=== PATIENT | female | born 1960 | race African-American/Black ===

== ENCOUNTER 2017-02-15 09:54 | Emergency (ER) | payer OTHER ==
[~2017-02-15] VITALS: Ht 167.6 cm; Wt 63.5 kg
[~2017-02-15 09:54] MED LIST: ALBUTEROL SULF8.5 GM INH; BACTRIM DS TAB1 EACH PO; CEFDINIR300 MG PO; CLARITIN10 M2 PO; CLEOCIN HCL150 MG PO; CLINDAMYCIN HC150 MG PO; COLACE100 MG PO; IBUPROFEN 400400 M2 PO; IBUPROFEN 800800 M1 PO; LEVAQUIN 500 M500 MG PO; NASAL SPRAY; NASONEX17 GM NASAL; NOHOMEMEDICATIONS; NORCO 5-325 TA1 EACH PO; PREDNISONE50 MG PO; TECFIDERA240 MG PO; TOVIAZ4 M1 PO; TRAMADOL 50 MG50 MG PO; TYLENOL325 MG PO; VALIUM2 MG PO; VITAMIN D-32000 UNI1 PO; ZOFRAN ODT4 MG PO
[2017-02-15 10:35] LABS: CALCIUM 9.4 mg/dL (8.5-10.1); CREATININE 1.1 mg/dL (0.6-1.0); POTASSIUM 4.2 mmol/L (3.5-5.1)
[2017-02-15 11:49] LABS: URINE BILIRUBIN NEGATIVE (Negative); URINE BLOOD TRACE (Negative); URINE COLOR YELLOW; URINE GLUCOSE-RANDOM* NEGATIVE (Negative); URINE KETONES 1+ (Negative); URINE LEUKOCYTES-REFLEX 3+ (Negative); URINE PROTEIN (DIPSTICK) 1+ (Negative); URINE SPECIFIC GRAVITY 1.015 (1.003-1.035); URINE UROBILINOGEN 0.2 E.U./dl (0.2-1.0)
[2017-02-15 11:54] LABS: CASTS None Seen /LPF (None Seen); CRYSTALS None Seen /LPF (None Seen); SQUAMOUS 4-10 Moderate /LPF (0-3); URINE WBC-REFLEX >25 Many /HPF (0-5)
[2017-02-15 11:55] LABS: URINE RBC 0-2 Rare /HPF (0-2)
[2017-02-15 13:21] LABS: HEMATOCRIT 34.1 % (37.0-47.0); HEMOGLOBIN 11.8 gm/dL (12.0-15.0); MCHC 34.5 g/dL (28.0-37.0); PLATELET COUNT 206 thou/uL (150-400); RBC 4.06 mil/uL (4.20-5.00); RDW 14.5 % (10.5-14.5); WBC 8.6 thou/uL (4.0-11.0)
[2017-02-15 13:22] LABS: MANUAL DIFF YES
[2017-02-15 13:51] LABS: ABSOLUTE NEUTROPHILS 7.1 thou/uL (1.4-8.2); ANISOCYTOSIS SLIGHT; TOTAL CELL COUNT 100
[2017-02-15] MEDS ORDERED: KEFLEX500 MG PO (13:51)
== END 2017-02-15 14:54 | disposition home or self-care (01) ==
LOC: ER 09:54
PROVIDERS: Emergency Medicine
DX: G35 Multiple sclerosis (principal); N39.0 Urinary tract infection, site not specified; Z88.0 Allergy status to penicillin

== ENCOUNTER 2017-03-18 22:44 | Emergency (ER) | payer OTHER | END 2017-03-19 03:14 | disposition home or self-care (01) | LOC: ER 22:44 | DX: M62.81 Muscle weakness (generalized) (principal); E83.42 Hypomagnesemia; G35 Multiple sclerosis; N39.0 Urinary tract infection, site not specified; Z88.1 Allergy status to other antibiotic agents ==

== ENCOUNTER 2017-09-02 05:41 | Observation (INO) | payer OTHER ==
[~2017-09-02] VITALS: Ht 167.6 cm; Wt 82.6 kg
--- NOTE | ~2017-09-02 | D ---
[facility] [place] [address] DISCHARGE SUMMARY Name: BRISEIDA MENDOZA Room #: 216-P PRASANNA Rahman#: [id number] Admission: 09/02/17 Attend Phys: Antonia Salas Discharge: 09/04/17 Date of : 56 Report #: [id number] THIS REPORT FOR: //name// CC: Antonia Salas ROBERT STRATTON DATE OF SERVICE: 09/04/2017 HISTORY OF PRESENT ILLNESS: The patient is a 57-year-old female with history of MS, who came to the hospital with severe right-sided facial pain, and facial weakness. Please refer to admission H and P for details. HOSPITALIZATION COURSE: The patient was hospitalized for above symptoms. The patient has history of MS, diagnosed in 2012. She was seen by neurologist. MRI of the brain showed no evidence of acute stroke. The patient was treated for trigeminal neuralgia with two doses of the steroids, Solu-Medrol 1000 mg. The patient's symptoms have entirely resolved. Due to weakness and debility from multiple sclerosis, the patient was seen and evaluated by rehab team. Acute rehab was recommended. The patient is currently stable to be transferred to the acute rehab. DISCHARGE DIAGNOSES: 1. Trigeminal neuralgia, resolved after steroid injections. No evidence of stroke. 2. History of multiple sclerosis, diagnosed in 2012, weakness and debility. DISCHARGE MEDICATIONS: Please refer to medication reconciliation list. FOLLOWUP PLAN: 1. Follow up with the primary care physician in 1-2 weeks. 2. Follow up with the neurologist as advised. <ELECTRONICALLY SIGNED> By: Mariana Romero MD 09/06/17 0709 [id number] 1510 Mariana Romero MD /nt
--- NOTE | ~2017-09-02 | HC ---
[facility] [place] [address] CONSULTATION Name: BRISEIDA MENDOZA Room #: 216-P [facility] Thais Rahman#: [id number] Admission: 09/02/17 Attend Phys: Antonia Salas Discharge: 09/04/17 Date of : 56 Report #: [id number] THIS REPORT FOR: //name// CC: Antonia Salas ROBERT STRATTON DATE OF SERVICE: 09/04/2017 HISTORY OF PRESENT ILLNESS: The patient is a 57-year-old -Albanian female with history of multiple sclerosis, diabetes mellitus, who had problems with facial weakness on the right, facial pain and worsening problems with ambulation. She was admitted to [facility]. Her MRI was consistent with MS without any active lesions per se. No evidence of any cerebrovascular accident. Question of trigeminal neuralgia. Neurology has been involved and she has been placed on IV Solu-Medrol. Her facial pain is improved, but there was concern regarding her decreased functional mobility and gait problems. We are seeing her in rehabilitation medicine consultation. PAST MEDICAL HISTORY: Include the multiple sclerosis. History of pyelonephritis, UTI. Upon checking her prior past medical history I do not actually see a diagnosis of diabetes. ALLERGIES: PENICILLIN. HABITS: No history of tobacco or alcohol abuse. SOCIAL HISTORY: Lives in a condominium with her , two steps in, 12 inside. She does not utilize any gait aids inside the condominium, but does use a cane outside of the house. REVIEW OF SYSTEMS: Offer any current complaints of chest pain, shortness of breath or abdominal discomfort. Her biggest concern is her decreased functional mobility. Notes that the facial pain is improved as noted above. PHYSICAL EXAMINATION: GENERAL: A pleasant 57-year-old -Albanian female in no obvious distress. The patient is alert. VITAL SIGNS: Last recorded temperature 98.2, pulse 72, respirations 16, blood pressure 131/75. HEENT: Appeared to be benign. EOMs appeared to be intact. EXTREMITIES: There was a hint of some nystagmus laterally as well as horizontally. She is able to verbalize reasonably well. Functional range of motion of both upper extremities. Strength is grade 4-/5. DTRs are trace to 1. She does reasonably well with bilateral upper extremity rapid alternating movements, but is quite slow and they are somewhat labored. Her lower extremities, no focal calf swelling. There is no clonus. She was very slow [facility] [address] [place] [address] CONSULTATION Name: BRISEIDA MENDOZA Room #: 216-P [facility] Thais Rahman#: [id number] Admission: 09/02/17 Attend Phys: Antonia Salas Discharge: 09/04/17 Date of : 56 Report #: [id number] with attempted [id number]. She was last contact guard assistance with [id number]-vs-[id number]. Gait was 45 feet min assist with the quad cane. ASSESSMENT: A 57-year-old -Albanian female with the following problem list: 1. Multiple sclerosis exacerbation, was placed on IV Solu-Medrol. 2. Gait instability with decreased functional ambulation. 3. Right facial pain, question trigeminal neuralgia, which has improved. 4. Renal insufficiency. PLAN: Therapies are to further evaluate. She certainly may be a candidate for a short acute in-hospital inpatient rehabilitation stay with her overall functional decline from her MS exacerbation. We will assess further how she does in therapies. Insurance precertification will need to be checked pending her needs. We will be glad to follow along with you regarding her rehab therapy needs. <ELECTRONICALLY SIGNED> By: Darrion De La Garza MD 09/05/17 1554 1130 2207 Darrion De La Garza MD /[facility]
--- NOTE | ~2017-09-02 | EKG ---
[address] [place] [employer] [place] [address] ELECTROCARDIOGRAM REPORT Name: BRISEIDA MENDOZA Room #: 216-P ADM IN M.R.#: [id number] Admission: 09/02/17 Attend Phys: Antonia Salas Discharge: Date of : 56 Report #: [id number] THIS REPORT FOR: //name// [facility] ED Test Date: 2017-09-02 Test Time: 06:41:51 Pat Name: BRISEIDA MENDOZA Department: Room: 216 Gender: F Coil Connector: ARLETH : 1960 Requested By: Rashad Villalba Order Number: [id number] MD: Arley Leiva Measurements Intervals [place] Rate: 81 P: 31 [place]: 169 QRS: 12 QRSD: 92 T: 52 QT: 382 QTc: 444 Interpretive Statements Sinus rhythm No significant abnormality Compared to ECG 03/18/2017 23:11:21 Sinus tachycardia no longer present T-wave abnormality no longer present Electronically Signed On 09-04-2017 7:25:51 MEDICAL DERMATOLOGIST by Arley Leiva [email or web address] <ELECTRONICALLY SIGNED> By: Arley Leiva MD, [facility] 09/04/17 07 0 0 Arley Leiva MD, [facility] /EPI
[~2017-09-02 05:41] MED LIST changes: +KEFLEX500 MG PO; +MAG-OXIDE400 MG PO; +ZPAK PO
[2017-09-02 05:51] VITALS: BP 138/54
[2017-09-02] MEDS ORDERED: COLACE 100 MG100 MG PO (06:03)
[2017-09-02] MEDS ORDERED: CLARITIN10 MG PO (06:03)
[2017-09-02 06:31] LABS: HEMATOCRIT 34.7 % (37.0-47.0); HEMOGLOBIN 12.1 gm/dL (12.0-15.0); MCH 28.6 pg (26.0-34.0); MCHC 34.8 g/dL (28.0-37.0); MCV 82.1 fL (80.0-100.0); RBC 4.22 mil/uL (4.20-5.00); WBC 3.8 thou/uL (4.0-11.0)
[2017-09-02 06:41] LABS: ANION GAP 11 mmol/L (7-16); BUN 15 mg/dL (7-18); CALCIUM 8.8 mg/dL (8.5-10.1); CHLORIDE 107 mmol/L (98-107); CO2 23 mmol/L (21-32); CREATININE 1.1 mg/dL (0.6-1.0); GLUCOSE 110 mg/dL (74-106); POTASSIUM 4.1 mmol/L (3.5-5.1); SODIUM 141 mmol/L (136-145)
[2017-09-02 06:46] LABS: APTT 23.6 Seconds (24.5-32.8); PROTIME 9.8 Seconds (9.3-11.4)
[2017-09-02 06:50] LABS: ALBUMIN 3.8 g/dL (3.4-5.0); SGOT 24 U/L (15-37); SGPT 40 U/L (30-65); TOTAL BILIRUBIN 0.2 mg/dL (<0.1-1.0); TROPONIN-I < 0.04 ng/mL (<0.06)
[2017-09-02 08:02] VITALS: BP 137/68
[2017-09-02 11:00] VITALS: BP 136/51
[2017-09-02 15:41] VITALS: BP 140/73
[2017-09-02 19:19] VITALS: BP 126/58
[2017-09-03 00:46] VITALS: BP 127/71
[2017-09-03 04:24] VITALS: BP 134/56
[2017-09-03 17:08] VITALS: BP 155/86
[2017-09-03 20:57] VITALS: BP 158/70
[2017-09-04 04:03] VITALS: BP 144/89
[2017-09-04 05:15] LABS: ABSOLUTE NEUTROPHILS 12.7 thou/uL (1.4-8.2); HEMATOCRIT 32.4 % (37.0-47.0); HEMOGLOBIN 10.9 gm/dL (12.0-15.0); LYMPHOCYTES 5.7 % (24.0-44.0); MCHC 33.7 g/dL (28.0-37.0); MCV 83.3 fL (80.0-100.0); MONOCYTES 5.7 % (1.0-8.0); PLATELET COUNT 226 thou/uL (150-400); POLYS 88.6 % (36.0-66.0); RBC 3.88 mil/uL (4.20-5.00); RDW 14.4 % (10.5-14.5)
[2017-09-04 05:27] LABS: CALCIUM 8.9 mg/dL (8.5-10.1); CREATININE 0.9 mg/dL (0.6-1.0); MAGNESIUM 1.9 mg/dL (1.8-2.4); POTASSIUM 3.7 mmol/L (3.5-5.1)
[2017-09-04 05:32] LABS: WBC 14.3 thou/uL (4.0-11.0)
[2017-09-04 07:11] VITALS: BP 131/75
[2017-09-04 15:25] VITALS: BP 122/71
== END 2017-09-04 16:50 ==
LOC: ER 05:41 → EROBS 06:53 → 2N 06:53
PROVIDERS: Emergency Medicine; Nurse Practitioner
DX: R29.810 Facial weakness (principal); G50.0 Trigeminal neuralgia; G35 Multiple sclerosis; E11.9 Type 2 diabetes mellitus without complications

== ENCOUNTER 2017-09-04 14:13 | Inpatient (IN) | payer OTHER ==
[~2017-09-04] VITALS: Ht 167.6 cm; Wt 80.7 kg
--- NOTE | ~2017-09-04 | PLAN ---
[facility] [place] [address] REHAB UNIT PLAN OF CARE Name: BRISEIDA MENDOZA Room #: 515-P ADM IN M.R.#: [id number] Admission: 09/04/17 Attend Phys: Darrion De La Garza MD Discharge: Date of : 56 Report #: [id number] THIS REPORT FOR: //name// CC: Darrion GOODMANHEL VIRAL DATE OF SERVICE: 09/07/2017 PROGRESS NOTE AND OVERALL PLAN OF CARE The patient is seen back today in followup. She is in no distress. Last recorded temperature 36.9, pulse 83, respirations 20, blood pressure 124/63. The patient is alert, pleasant. No focal changes noted on neurologic exam today. She transfers with contact guard and is ambulating 250 feet min assist with a quad cane. In occupational therapy, upper body dressing is supervision with lower body dressing, supervision. In speech therapy, she has mild to moderate comprehensive deficits. She is on a regular thin diet. ASSESSMENT: 1. Multiple sclerosis exacerbation. 2. Gait instability with decreased functional ambulation. 3. Functional mobility and ADL deficits. 4. Right facial pain, question trigeminal neuralgia. Continues to improve. 5. Renal insufficiency. Last creatinine 0.8. PLAN: The overall plan of care is based on the preadmission screen, post-admission physician evaluation and information garnered from therapy assessments. 1. Estimated length of stay is approximately one week. Our plan from rehabilitation team is for her to go home next 09/13/2017. 2. Medical prognosis is good. 3. Anticipated interventions includes the interdisciplinary acute inpatient rehabilitation program with PT and OT involved, speech therapy is working with her on comprehension and cognition. She only had some mild dysphagia. Nursing is assisting regarding medication management, skin care prophylaxis, bowel and bladder issues and nursing education. We are having the benefits sales consultant physicians continue to follow while she is on the rehab bridges. Neurology saw her yesterday. He noted giving a trial of gabapentin first with potential consideration for Tegretol as another option. 4. Anticipated functional outcomes would be for the patient to become modified independent with transfers, mobility and ADLs at a walker level as well as to improve as far as overall cognition. She did not utilize any gait aids inside the condominium premorbidly, but we will have to see how she does functionally as far as achieving that status again. 5. Discharge destination would be back [facility] [place] [address] REHAB UNIT PLAN OF CARE Name: BRISEIDA MENDOZA Room #: 515-P [facility] IN .R.#: [id number] Admission: 09/04/17 Attend Phys: Darrion De La Garza MD Discharge: Date of : 56 Report #: [id number] 6. Expected therapy by discipline includes PT, OT and speech 1 hour per day each five days a week throughout the duration of the acute inpatient rehabilitation stay. <ELECTRONICALLY SIGNED> By: Darrion De La Garza MD 09/08/17 1408 0842 2242 Darrion De La Garza MD /[facility]
--- NOTE | ~2017-09-04 | H ---
[facility] [place] [facility] [place] [address] HISTORY AND PHYSICAL Name: BRISEIDA MENDOZA Room #: 515-P ADM IN M.R.#: [id number] Admission: 09/04/17 Attend Phys: Darrion De La Garza MD Discharge: Date of : 56 Report #: [id number] THIS REPORT FOR: //name// CC: Darrion GOODMANHEL VIRAL DATE OF SERVICE: 09/05/2017 HISTORY AND PHYSICAL/POST-ADMISSION PHYSICIAN EVALUATION HISTORY OF PRESENT ILLNESS: The patient is a 57-year-old -Citizen Of [place] female with a history of multiple sclerosis, diabetes mellitus who had problems with facial weakness on the right, facial pain and worsening problems with ambulation. She was admitted to [facility] [place] [facility] originally and her MRI was consistent with multiple sclerosis without any active lesions per se. No evidence of any cerebrovascular accident. Question of trigeminal neuralgia. Neurology was involved and she was placed on IV Solu-Medrol. Facial pain improved, but there was concern with her decreased functional mobility and gait problems. She was noted to have had a significant decline from her premorbid functional status and has now been admitted for acute in-hospital inpatient rehabilitation. PAST MEDICAL HISTORY: Includes multiple sclerosis. She has a history of pyelonephritis and urinary tract infection. Again, upon checking her list, I do not see an actual diagnosis of diabetes. ALLERGIES: INCLUDE PENICILLIN. HABITS: No history of tobacco or alcohol abuse. SOCIAL HISTORY: Lives in a condominium with her , two steps in, 12 inside. She does not utilize any gait aids inside the condominium, but does use a cane outside of the house. REVIEW OF SYSTEMS: No complaints of chest pain, shortness of breath, abdominal discomfort. Facial pain has been improved. No distal focal extremity pain complaints. PHYSICAL EXAMINATION: GENERAL: A 57-year-old -Citizen Of [place] female in no obvious distress. VITAL SIGNS: Last recorded temperature 97.7, pulse 69, respirations 18, blood pressure 153/82. HEENT: Appeared to be benign. EOMs appeared to be intact, hint of some nystagmus laterally as well as horizontally. CHEST: Sounded clear to auscultation. CARDIOVASCULAR: Regular rate and rhythm. [facility] [place] [facility] [address] [place] [address] HISTORY AND PHYSICAL Name: BRISEIDA MENDOZA Room #: 515-P [facility] IN [facility].#: [id number] Admission: 09/04/17 Attend Phys: Darrion De La Garza MD Discharge: Date of : 56 Report #: [id number] ABDOMEN: Bowel sounds positive, nontender. GENITOURINARY AND RECTAL: Deferred. NEUROLOGIC: Functional range of motion of both upper extremities with strength grade 4-/5. DTRs are trace to 1. There is some slowness with her upper extremity coordination and rapid alternating movements. Lower extremities, no focal calf swelling with no clonus. She has some decreased coordination deficits. She has been transferring with contact guard assistance with gait min assist 150 feet with the quad cane prior to admission. ASSESSMENT: A 57-year-old -Citizen Of [place] female with the following problem list: 1. Multiple sclerosis exacerbation, was placed on IV Solu-Medrol by Neurology. 2. Gait instability with decreased functional ambulation. 3. Functional mobility and ADL deficits with a decline from her premorbid functional status. 4. Right facial pain, question trigeminal neuralgia, which has improved. 5. Renal insufficiency. PLAN: The patient is admitted for acute in-hospital inpatient rehabilitation. From a postadmission physician evaluation perspective, there are no relevant changes since the preadmission screening. Please see the above review of prior and current medical and functional conditions and comorbidities. Please see the patient's previous and current functional status. As far as risk of complication, she has the multiple medical comorbidities as noted above. The initial plan of care involves the interdisciplinary acute inpatient rehabilitation program with the goal of maximizing the patient's functional independence, so that she can hopefully return back to her prior living situation. Prognosis is reasonably good with estimated length of stay probably at least 7-14 days pending progress. Potential barriers would include her multiple medical comorbidities and decreased functional status. The patient's diagnosis is appropriate for acute inpatient rehabilitation. She meets medical necessity criteria. She does have the tolerance for therapies and does have appropriate discharge goals back to the home setting. <ELECTRONICALLY SIGNED> By: Darrion De La Garza MD 09/05/17 1554 0756 0812 Darrion De La Garza MD /[facility]
--- NOTE | ~2017-09-04 | HC ---
[facility] [place] [address] CONSULTATION Name: BRISEIDA MENDOZA Room #: 515-P ADM IN M.R.#: [id number] Admission: 09/04/17 Attend Phys: Darrion De La Garza MD Discharge: Date of : 56 Report #: [id number] THIS REPORT FOR: //name// CC: Darrion De La Garza ROBERT STRATTON DATE OF SERVICE: 09/09/2017 NEUROBEHAVIORAL STATUS EXAM AGE: 57. ATTENDING PHYSICIAN: Darrion De La Garza MD JEWELRY MECHANIC: Butch Alvarado PhD CLINICAL PRESENTATION: The patient is a 57-year-old -Cuban female with a history of multiple sclerosis, diabetes mellitus with facial weakness on the right side, facial pain and impairment of ambulation. She is admitted to the [facility] with symptoms that suggested an exacerbation of multiple sclerosis. Renal insufficiency, right facial pain with trigeminal neuralgia and deficits in functional mobility and ADLs are included among her assessment. A complete description of her medical condition, history and medications can be found in her medical record. Neuropsychological consultation was requested to provide assistance in the assessment of cognitive and emotional status and to provide recommendations and services. Prior to this most recent admission, she was living at home with her . The patient has two children. Her is performing most of her instrumental activities of daily living. The patient has been on disability. 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 She is a high school graduate. The patient had four sisters and two brothers. TECHNIQUES UTILIZED: Clinical interview, review of medical records, staff consultation and behavioral observation, mini mental status exam 2 standard version and clock drawing. EXAMINATION FINDINGS: The patient was alert and cooperative with the assessment. She described the reason for her hospitalization as related to earaches, incontinence and leg pain. Her was necessary to provide additional information in regard to her deficits and functioning requiring treatment. As inidicated, the patient lacked insight into deficits of memory and word finding. Her indicates that she had a period of confusion, disorientation and variability in cognition prior to her admission. There is [address] [address] CONSULTATION Name: BRISEIDA MENDOZA Room #: 515-P [facility] IN M.R.#: [id number] Admission: 09/04/17 Attend Phys: Darrion De La Garza MD Discharge: Date of : 56 Report #: [id number] no evidence of aphasia. Her thoughts are logical and goal oriented. There is no evidence of thought disorder. She does not report auditory or visual hallucinations. There is no suicidal ideation. Her performance on the MMSE 2 brief version is extremely low with a raw score of 12 of 16, which is a T score of 25 and percentile rank of 1. She is 3/3 for initial registration, 5/5 for orientation to time and 4/[address]. She was 0/3 for immediate recall of 3 items after a brief time delay and distraction. Her performance on the MMSE 2 standard version was extremely low with a raw score of 20, T score of 19 and percentile rank of less than 1. She was 0/5 for serial 7's, 2/2 for naming, 1/1 for repetition, 3/3 for auditory comprehension. She could read and follow a single command and write a sentence. The patient was unable to accurately copy a simple geometric design. Clock drawing was impaired. She was unable to write all the numbers within the clock and also had difficulty with hand placement. DIAGNOSTIC IMPRESSION: Major neurocognitive disorder (dementia), due to medical etiology (multiple sclerosis), without behavior disturbance likely in the moderate range. RECOMMENDATIONS: The patient will need continued assistance in the management of medication, finances and nutrition. The use of compensatory strategies will be of benefit to assist memory, attention and concentration and visual spatial organization. Encourage the patient to take initiative in monitoring her schedule, therapies, purpose of treatment and medications to improve independence. The use of memory/orientation notebook to improve self monitoring. Thank you very much for allowing me to provide the consultation on this patient. <ELECTRONICALLY SIGNED> By: Butch Alvarado, PhD 09/10/17 1452 1547 0354 Butch Alvarado, PhD /nt
[~2017-09-04 14:13] MED LIST changes: +CLARITIN10 MG PO; +COLACE 100 MG100 MG PO
[2017-09-04 17:00] VITALS: BP 136/64
[2017-09-04 20:30] VITALS: BP 153/82
[2017-09-05 04:01] LABS: HEMATOCRIT 31.3 % (37.0-47.0); HEMOGLOBIN 10.8 gm/dL (12.0-15.0); MCH 28.4 pg (26.0-34.0); MCHC 34.6 g/dL (28.0-37.0); MCV 81.9 fL (80.0-100.0); RBC 3.82 mil/uL (4.20-5.00); RDW 13.7 % (10.5-14.5); WBC 9.2 thou/uL (4.0-11.0)
[2017-09-05 04:12] LABS: CREATININE 0.8 mg/dL (0.6-1.0); POTASSIUM 3.1 mmol/L (3.5-5.1)
[2017-09-05 08:00] VITALS: BP 148/91
[2017-09-05 19:00] VITALS: BP 137/75
[2017-09-06 04:17] LABS: CALCIUM 8.9 mg/dL (8.5-10.1); CREATININE 0.8 mg/dL (0.6-1.0); POTASSIUM 3.8 mmol/L (3.5-5.1)
[2017-09-06 08:15] VITALS: BP 142/61
[2017-09-06 19:05] VITALS: BP 124/63
[2017-09-07 08:53] VITALS: BP 110/50
[2017-09-07 21:07] VITALS: BP 112/52
[2017-09-08 10:09] VITALS: BP 144/70
[2017-09-08 19:48] VITALS: BP 138/80
[2017-09-09 08:00] VITALS: BP 111/70
[2017-09-09 19:52] VITALS: BP 108/62
[2017-09-10 08:00] VITALS: BP 132/71
[2017-09-10 16:16] LABS: URINE BILIRUBIN NEGATIVE (Negative); URINE BLOOD NEGATIVE (Negative); URINE CLARITY CLEAR; URINE COLOR YELLOW; URINE GLUCOSE-RANDOM* NEGATIVE (Negative); URINE KETONES NEGATIVE (Negative); URINE LEUKOCYTES-REFLEX TRACE (Negative); URINE NITRITE-REFLEX NEGATIVE (Negative); URINE PROTEIN (DIPSTICK) NEGATIVE (Negative); URINE SPECIFIC GRAVITY 1.015 (1.005-1.035); URINE UROBILINOGEN 0.2 E.U./dl (0.2-1.0)
[2017-09-10 21:17] VITALS: BP 132/87
[2017-09-11 08:40] VITALS: BP 112/72
[2017-09-11 19:52] VITALS: BP 149/65
[2017-09-12 06:13] LABS: HEMATOCRIT 33.1 % (37.0-47.0); HEMOGLOBIN 11.6 gm/dL (12.0-15.0); MCH 28.8 pg (26.0-34.0); MCHC 35.2 g/dL (28.0-37.0); MCV 81.7 fL (80.0-100.0); PLATELET COUNT 247 thou/uL (150-400); RBC 4.05 mil/uL (4.20-5.00); RDW 13.9 % (10.5-14.5); WBC 4.5 thou/uL (4.0-11.0)
[2017-09-12 06:30] LABS: CALCIUM 9.2 mg/dL (8.5-10.1); CREATININE 0.8 mg/dL (0.6-1.0); MAGNESIUM 1.9 mg/dL (1.8-2.4)
[2017-09-12 07:43] LABS: ABSOLUTE NEUTROPHILS 2.5 thou/uL (1.4-8.2); ATYPICAL LYMPHS 4 %
[2017-09-12 07:44] LABS: ANISOCYTOSIS SLIGHT
[2017-09-12 08:15] VITALS: BP 112/87
[2017-09-12 19:43] VITALS: BP 114/65
[2017-09-13 08:00] VITALS: BP 112/68
[2017-09-13] MEDS ORDERED: VITAMIN D-32000 UNI1 PO (10:32)
[2017-09-13] MEDS ORDERED: NEURONTIN 300300 M1 PO (10:32)
[2017-09-13 11:38] VITALS: BP 112/68
[2017-09-13 11:59] VITALS: BP 112/68
== END 2017-09-13 12:55 | disposition home health service (06) | DRG 60 ==
LOC: ENTRNSPT 09-13 12:44 → EDTRNSPTSTS 09-13 12:49
PROVIDERS: Internal Medicine Endocrinology, Diabetes & Metabolism; Nurse Practitioner; Physical Medicine & Rehabilitation
DX: G35 Multiple sclerosis (principal); E11.9 Type 2 diabetes mellitus without complications; R26.9 Unspecified abnormalities of gait and mobility; R51 Headache; N28.9 Disorder of kidney and ureter, unspecified; G50.0 Trigeminal neuralgia; E87.6 Hypokalemia; F01.50 Vascular dementia, unspecified severity, without behavioral disturbance, psychotic disturbance, mood disturbance, and anxiety; K00.2 Abnormalities of size and form of teeth; Z88.0 Allergy status to penicillin; Z87.440 Personal history of urinary (tract) infections
CPT/HCPCS: 10112

== ENCOUNTER 2017-12-30 11:14 | Inpatient (IN) | payer OTHER ==
[~2017-12-30] VITALS: Ht 167.6 cm; Wt 80.7 kg
--- NOTE | ~2017-12-30 | H ---
[facility] [place] [place] [address] HISTORY AND PHYSICAL Name: BRISEIDA MENDOZA Room #: 421-P ADM IN M.R.#: [id number] Admission: 12/30/17 Attend Phys: Tye Weston MD Discharge: Date of : 56 Report #: [id number] THIS REPORT FOR: //name// CC: Tye STRATTON REASON FOR PRESENTATION: Weakness. HISTORY OF PRESENT ILLNESS: A 57-year-old with past medical history of multiple sclerosis. She is followed at [facility] for her multiple sclerosis. Her multiple sclerosis is being managed by Neurology team there. Most of the time she is able to manage her daily activities without any problems other than occasional usage of walker. She had a fall this morning. Her found her down. No loss of consciousness. She felt that her left lower extremity was weak. Her was told by Dr. Ahn in [facility] that she will have waxing and waning courses of her multiple sclerosis. She denies any urinary symptoms. No upper respiratory tract infection symptoms to justify the flareup. She did have similar episodes and was admitted back in August of this year for rehabilitation in our facility. is not comfortable dealing with her situation at home and brought her to the Emergency Room. No swallowing issues. No headache or dizziness. She has some incontinence of bowel and urine occasionally. PAST MEDICAL HISTORY: Multiple sclerosis. Repeated urinary tract infection. [place] teeth extractions. Pyelonephritis in the past. ALLERGIES: PENICILLIN. MEDICATIONS: 1. Dimethyl fumarate. 2. Toviaz. 3. Ibuprofen occasionally. 4. Docusate. 5. Vitamin D. SOCIAL HISTORY: She lives with her . No drug or alcohol abuse. FAMILY HISTORY: No known multiple sclerosis in the family. REVIEW OF SYSTEMS: CONSTITUTIONAL: No fever or chills. PULMONARY: No cough or hemoptysis: CARDIOVASCULAR: No chest pain or palpitation. GASTROINTESTINAL: No nausea or vomiting. GENITOURINARY: No frequency, no urgency. MUSCULOSKELETAL: As per the history of present illness. SKIN: No rash or ulcerations. [facility] [address] [place] [address] HISTORY AND PHYSICAL Name: BRISEIDA MENDOZA Room #: 421-P [facility] IN [facility].#: [id number] Admission: 12/30/17 Attend Phys: Tye Weston MD Discharge: Date of : 56 Report #: [id number] as per history of present illness. PHYSICAL EXAMINATION: GENERAL: Alert, oriented, somewhat sluggish. VITAL SIGNS: Pulse rate is 95, blood pressure 136/71. HEAD AND NECK: No jugular venous distention, no bruit, no thyromegaly. CHEST: Clear to auscultation bilaterally. CARDIOVASCULAR: Regular with no rub detected. ABDOMEN: Soft, nontender with no hepatosplenomegaly. LOWER EXTREMITIES: No edema. NEUROLOGICAL: She is sluggish, but alert, oriented. There seems to be 4/5 power in both upper extremities and lower extremities. Reflexes are intact. SKIN: No rash or ulcerations. LABORATORY VALUES: Reviewed, essentially unremarkable other than a mildly elevated blood sugar. CT head negative for any acute issues. Chest x-ray reviewed was negative for any acute process. ASSESSMENT, IMPRESSION AND PLAN: 1. Multiple sclerosis. 2. Repeated falls. 3. History of diabetes mellitus. 4. Admission. 5. Observation. 6. Neurologic consultation to decide about steroid pulse dose. 7. Blood sugar control. 8. PT and OT to evaluate. 9. We will await for further recommendation from the Neurology team. By: [id number] Tye Weston MD /nt
--- NOTE | ~2017-12-30 | EKG ---
[place] [address] [facility] [place] [address] ELECTROCARDIOGRAM REPORT Name: BRISEIDA MENDOZA Room #: 421-P ADM IN M.R.#: [id number] Admission: 12/30/17 Attend Phys: Tye Weston MD Discharge: Date of : 56 Report #: [id number] THIS REPORT FOR: //name// [facility] ED Test Date: 2017-12-30 Test Time: 13:36:44 Pat Name: BRISEIDA MENDOZA Department: Room: Gender: F Client Services Representative: Jazmín ESPINAL : 1960 Requested By: Kerry Westbrook Order Number: [id number] MD: Kirby Giraldo Measurements Intervals [place] Rate: 117 P: 38 [place]: 165 QRS: 15 QRSD: 93 T: 187 QT: 289 QTc: 403 Interpretive Statements Sinus tachycardia Nonspecific T-wave abnormalities Compared to ECG 09/02/2017 06:41:51 T-wave abnormality now present Sinus rhythm no longer present Electronically Signed On 12-31-2017 12:56:02 CDT by Kirby Giraldo [email or web address] <ELECTRONICALLY SIGNED> By: Kirby Giraldo MD 12/31/17 1256 35 35 Kirby Giraldo MD /EPI
--- NOTE | ~2017-12-30 | HC ---
[facility] [place] [address] CONSULTATION Name: BRISEIDA MENDOZA Room #: 421-P ADM IN M.R.#: [id number] Admission: 12/30/17 Attend Phys: Tye Weston MD Discharge: Date of : 56 Report #: [id number] THIS REPORT FOR: //name// CC: Tye Weston ROBERT STRATTON DATE OF SERVICE: 01/01/2018 HISTORY OF PRESENT ILLNESS: The patient is a 57-year-old -Haitian female who has a prior history of multiple sclerosis and diabetes mellitus, readmitted with worsening ability to ambulate. She has had problems walking with a fall and her was unable to get her up. She was readmitted to [facility], diagnosed with multiple sclerosis exacerbation. She has been started on IV Solu-Medrol with Neurology closely involved. She has MRI of the brain, thoracic and cervical spine that are currently ordered. She has had a significant functional decline with the history of falling and decreased functional mobility and ADLs and we are seeing her in rehabilitation medicine consultation. PAST MEDICAL HISTORY: Multiple sclerosis, history of pyelonephritis, urinary tract infection. There is a note of diabetes mellitus for which she has been on metformin. ALLERGIES: PENICILLIN. HABITS: No history of tobacco or alcohol abuse. SOCIAL HISTORY: She has been living in a condominium with her , two steps in, 12 inside. Did not utilize gait aids inside the condominium, was a furniture walker. She was noted to use a quad cane and also used aid for wheel walker. REVIEW OF SYSTEMS: No current complaints of chest pain, shortness of breath or abdominal discomfort. MEDICATIONS: Please see the full medication listing. PAST SURGICAL HISTORY: Includes vitamins, herbals, and supplements. PHYSICAL EXAMINATION: GENERAL: A 57-year-old -Haitian female, in obvious distress. VITAL SIGNS: Last recorded temperature 98.1, pulse 98, respirations 16, and blood pressure 135/64. NEUROLOGIC: Alert, follows basic 1 step commands. EOMs appeared to be intact with some nystagmus noted laterally as well as horizontally. EXTREMITIES: She has functional range of motion of both upper extremities with [facility] [address] [place] [address] CONSULTATION Name: BRISEIDA MENDOZA Room #: 421-P [facility] IN [facility].#: [id number] Admission: 12/30/17 Attend Phys: Tye Weston MD Discharge: Date of : 56 Report #: [id number] strength grade 4-/5. DTRs are trace to 1. She has some slowness of upper extremity, coordination and rapid alternating movements. Lower extremities, no focal calf swelling. She does have some decreased coordination. There is no clonus. Strength is probably grade 4-. She is needing mod assist with attempted ambulation with a front-wheeled walker with transfers, sit to stand, contact guard assistance. IMPRESSION: A 57-year-old -Haitian female readmitted with the following problem list: 1. Recurrent multiple sclerosis exacerbation, has been placed on IV Solu-Medrol per Neurology. MRI of the brain, cervical spine and thoracic spine are currently pending. 2. Significant decreased functional mobility with fall at home and has been unable to get her up. 3. Functional ADL deficits, to be further evaluated by occupational therapy. 4. Diabetes mellitus for which she has been on metformin. 5. History of renal insufficiency. PLAN: Occupational therapy to evaluate. She has had a significant decline as far as functional mobility from her premorbid status. Insurance will be checked regarding a short acute inpatient rehabilitation stay to further maximize her functional mobility and have the goal of returning her back to the home setting post rehab stay. At this point, we will be glad to follow along with you regarding her rehab therapy needs. By: [id number] Darrion De La Garza MD /nt
[~2017-12-30 11:14] MED LIST changes: +NEURONTIN 300300 M1 PO
[2017-12-30 11:15] VITALS: BP 136/71
[2017-12-30 11:31] LABS: ABSOLUTE NEUTROPHILS 8.9 thou/uL (1.4-8.2); BASOPHILS 0.1 % (0.0-2.0); EOSINOPHILS 0.2 % (0.0-3.0); HEMATOCRIT 34.9 % (37.0-47.0); LYMPHOCYTES 2.5 % (24.0-44.0); MCH 28.2 pg (26.0-34.0); MCHC 34.3 g/dL (28.0-37.0); MCV 82.3 fL (80.0-100.0); MONOCYTES 4.3 % (1.0-8.0); PLATELET COUNT 195 thou/uL (150-400); POLYS 92.9 % (36.0-66.0); RBC 4.23 mil/uL (4.20-5.00); RDW 14.1 % (10.5-14.5); WBC 9.6 thou/uL (4.0-11.0)
[2017-12-30 11:39] LABS: CALCIUM 8.7 mg/dL (8.5-10.1); CREATININE 0.9 mg/dL (0.6-1.0)
[2017-12-30 11:45] LABS: ALBUMIN 3.6 g/dL (3.4-5.0); TOTAL BILIRUBIN 0.5 mg/dL (<0.1-1.0); TOTAL PROTEIN 6.9 g/dL (6.4-8.2)
[2017-12-30 12:50] LABS: URINE BILIRUBIN NEGATIVE (Negative); URINE BLOOD NEGATIVE (Negative); URINE CLARITY CLEAR; URINE COLOR YELLOW; URINE GLUCOSE-RANDOM* NEGATIVE (Negative); URINE KETONES 1+ (Negative); URINE LEUKOCYTES-REFLEX NEGATIVE (Negative); URINE NITRITE-REFLEX NEGATIVE (Negative); URINE PROTEIN (DIPSTICK) NEGATIVE (Negative); URINE SPECIFIC GRAVITY 1.025 (1.005-1.035); URINE UROBILINOGEN 0.2 E.U./dl (0.2-1.0)
[2017-12-30 14:12] VITALS: BP 124/69
[2017-12-30 15:00] VITALS: BP 112/55
[2017-12-30 16:00] VITALS: BP 139/65
[2017-12-30] MEDS ORDERED: METFORMIN HCL500 MG PO (17:31)
[2017-12-30] MEDS ORDERED: TOVIAZ4 M1 PO (17:32)
[2017-12-30] MEDS ORDERED: NEURONTIN 300300 M1 PO (17:33)
[2017-12-30] MEDS ORDERED: TECFIDERA PO (17:33)
[2017-12-30] MEDS ORDERED: CLARITIN10 MG PO (17:34)
[2017-12-30] MEDS ORDERED: LIPITOR10 MG PO (17:34)
[2017-12-30] MEDS ORDERED: FLONASE 0.05%50 MCG INH (17:35)
[2017-12-30 19:26] VITALS: BP 127/68
[2017-12-31 04:15] VITALS: BP 132/75; BP 85/57
[2017-12-31 08:00] VITALS: BP 131/53
[2017-12-31 20:00] VITALS: BP 162/86
[2018-01-01 04:33] VITALS: BP 148/65
[2018-01-01 05:15] LABS: HEMATOCRIT 31.6 % (37.0-47.0); MCH 28.6 pg (26.0-34.0); MCHC 34.7 g/dL (28.0-37.0); MCV 82.2 fL (80.0-100.0); RBC 3.84 mil/uL (4.20-5.00); RDW 14.2 % (10.5-14.5); WBC 5.7 thou/uL (4.0-11.0)
[2018-01-01 05:29] LABS: ALBUMIN 2.8 g/dL (3.4-5.0); CALCIUM 7.7 mg/dL (8.5-10.1); CREATININE 0.8 mg/dL (0.6-1.0); POTASSIUM 3.7 mmol/L (3.5-5.1); TOTAL BILIRUBIN 0.2 mg/dL (<0.1-1.0); TOTAL PROTEIN 5.9 g/dL (6.4-8.2)
[2018-01-01 07:35] VITALS: BP 135/64
[2018-01-01 19:53] VITALS: BP 156/72
[2018-01-02 05:13] LABS: ABSOLUTE NEUTROPHILS 5.8 thou/uL (1.4-8.2); BASOPHILS 0.1 % (0.0-2.0); LYMPHOCYTES 10.5 % (24.0-44.0); MCH 28.2 pg (26.0-34.0); MCHC 34.3 g/dL (28.0-37.0); MCV 82.2 fL (80.0-100.0); MONOCYTES 3.1 % (1.0-8.0); PLATELET COUNT 201 thou/uL (150-400); POLYS 86.3 % (36.0-66.0); RBC 3.89 mil/uL (4.20-5.00); RDW 14.2 % (10.5-14.5); WBC 7.4 thou/uL (4.0-11.0)
[2018-01-02 05:31] LABS: CALCIUM 8.5 mg/dL (8.5-10.1); CREATININE 0.9 mg/dL (0.6-1.0); POTASSIUM 4.1 mmol/L (3.5-5.1)
[2018-01-02 09:31] VITALS: BP 148/57
[2018-01-02] MEDS ORDERED: HOME MEDICATION PO ×2 (16:53)
[2018-01-02] MEDS ORDERED: MEDROLDOSEPACK PO ×4 (16:53)
== END 2018-01-02 19:45 | DRG 60 ==
LOC: ER 11:14 → EROBS 13:39 → 4E 14:44
PROVIDERS: Hospitalist; Physician Assistant
DX: G35 Multiple sclerosis (principal); R00.0 Tachycardia, unspecified; E11.9 Type 2 diabetes mellitus without complications; R29.6 Repeated falls; I10 Essential (primary) hypertension; Z87.440 Personal history of urinary (tract) infections; Z79.899 Other long term (current) drug therapy; Z88.0 Allergy status to penicillin; W18.39XA Other fall on same level, initial encounter; Y93.89 Activity, other specified; Y92.89 Other specified places as the place of occurrence of the external cause; Y99.8 Other external cause status
CPT/HCPCS: 10183

== ENCOUNTER 2018-01-02 17:10 | Inpatient (IN) | payer OTHER ==
[~2018-01-02] VITALS: Ht 167.6 cm; Wt 82.1 kg
--- NOTE | ~2018-01-02 | H ---
[facility] [place] [address] HISTORY AND PHYSICAL Name: BRISEIDA MENDOZA Room #: 509-P ADM IN M.R.#: [id number] Admission: 01/02/18 Attend Phys: Darrion De La Garza MD Discharge: Date of : 56 Report #: [id number] THIS REPORT FOR: //name// CC: Darrion STRATTON DATE OF SERVICE: 01/03/2018 HISTORY AND PHYSICAL/POSTADMISSION PHYSICIAN EVALUATION HISTORY OF PRESENT ILLNESS: The patient is a 57-year-old -Kenyan female with a prior history of multiple sclerosis, diabetes mellitus, was readmitted to [facility] on 01/01/2018 with worsening ability to ambulate. She had problems of walking with a fall and her was unable to get her up. She was readmitted to [facility], diagnosed with multiple sclerosis exacerbation. She was seen by Neurology, started on IV Solu-Medrol. MRI did not reveal any acute abnormalities with extensive white matter signal changes compatible with a demyelinating process. Stable MRI of the thoracic cord with suggestion of nonactive MS plaques, cervical spine, no active evidence of demyelinating disease. The patient continues on the steroids. She has had significant functional decline since her premorbid status and with her prior history of multiple falls, has been admitted for an acute in-hospital inpatient rehabilitation stay. PAST MEDICAL HISTORY: Includes multiple sclerosis, history of pyelonephritis, urinary tract infection. She has history of diabetes mellitus for which she was on metformin. ALLERGIES: INCLUDE PENICILLIN. HABITS: No history of tobacco or alcohol abuse. SOCIAL HISTORY: She has been living in a condominium with her , two steps in, 12 inside. Did not utilize gait aids inside the condominium. She was a furniture walker. She was noted to use a quad cane and also used a wheeled walker. REVIEW OF SYSTEMS: No current complaints of chest pain, shortness of breath, abdominal discomfort. No focal extremity pain complaints. MEDICATIONS: Please see the full medication listing. This medication listing includes her vitamins, herbals and supplements. PHYSICAL EXAMINATION: GENERAL: A 57-year-old -Kenyan female in no obvious distress. VITAL SIGNS: Last recorded temperature 98.2, pulse 77, respirations 20 and [facility] [address] [place] [address] HISTORY AND PHYSICAL Name: BRISEIDA MENDOZA Room #: 509-P [facility] IN [facility].#: [id number] Admission: 01/02/18 Attend Phys: Darrion De La Garza MD Discharge: Date of : 56 Report #: [id number] blood pressure 152/88. NEUROLOGIC: She is alert. She is pleasant. There is a definite slowness in her responses with a latency. She does follow basic 1 step commands. Some decreased attention and she does need cues. EOMs appeared to be full with some nystagmus laterally as well as horizontally. CHEST: Sounds are clear to auscultation. CARDIOVASCULAR: Regular rate and rhythm. ABDOMEN: Bowel sounds positive, nontender. GENITOURINARY AND RECTAL: Deferred. EXTREMITIES: She has functional range of motion of the upper extremities with strength grade 4-/5. DTRs are trace to 1. She has difficulty with right to left discrimination and when I asked her to do something will typically use her right upper extremity. She does have decreased coordination of the left upper extremity. As far as [id number]-ctid and fine finger dexterity compared to the right. Strength is probably a grade 4-/5. Right upper extremity is 4- to 4/5. Her lower extremities, there is no focal calf swelling. Functional range of motion and strength is a grade 4-. DTRs are 1. There is no clonus at the ankle. Transfers are contact guard with gait contact guard. Limited distances. Lower body dressing is being assessed. ASSESSMENT: This is a 57-year-old -Kenyan female with the following problem list: 1. Recurrent multiple sclerosis exacerbation. 2. Bilateral lower extremity weakness with initial inability to ambulate and history of repeated falls. 3. Significant functional mobility and activities of daily living deficits as well as cognitive issues. 4. History of diabetes mellitus for which she has been on metformin. 5. History of renal insufficiency. PLAN: The patient is admitted for acute in-hospital inpatient rehabilitation. From a postadmission physician evaluation perspective, there are no relevant changes since the preadmission screening. Please see the above review of prior and current medical and functional conditions and comorbidities. Please see the patient's previous and current functional status. As far as risk of complications, the patient has multiple medical comorbidities as noted above. Initial plan of care involves the interdisciplinary acute inpatient rehabilitation program with goal of maximizing in the patient's functional independence so that she can hopefully return back to her prior living situation. Measurable functional goals would be for her to become improved as far as ideally modified independent up with at least a walker and independence with basic ADLs and improved cognition, so she can return back home with her . Prognosis is reasonably good with estimated length of stay probably at [facility] [address] [place] [address] HISTORY AND PHYSICAL Name: BRISEIDA MENDOZA Room #: 509-P ADM IN M.R.#: [id number] Admission: 01/02/18 Attend Phys: Darrion De La Garza MD Discharge: Date of : 56 Report #: [id number] least 5-10 days pending progress. Potential barriers would include her multiple medical comorbidities and decreased functional status. <ELECTRONICALLY SIGNED> By: Darrion De La Garza MD 01/05/18 1314 [id number] Darrion De La Garza MD /nt
--- NOTE | ~2018-01-02 | PLAN ---
[facility] [place] [address] REHAB UNIT PLAN OF CARE Name: BRISEIDA MENDOZA Room #: 509-P ADM IN M.R.#: [id number] Admission: 01/02/18 Attend Phys: Darrion De La Garza MD Discharge: Date of : 56 Report #: [id number] THIS REPORT FOR: //name// CC: Darrion GOODMANHEL VIRAL DATE OF SERVICE: 01/05/2018 PROGRESS NOTE/OVERALL PLAN OF CARE SUBJECTIVE: The patient is seen back today in followup. She is pleasant, in no distress. Temperature 98.5, pulse 79, respirations 20, blood pressure 123/78. No focal calf swelling. Transfers are standby assistance. Gait standby assistance 250 feet, 4-wheeled walker. Lower body dressing with supervision. Moderate comprehensive deficits. Moderate to severe cognitive deficits. ASSESSMENT: 1. Recurrent multiple sclerosis exacerbation. 2. Bilateral lower extremity weakness with inability to ambulate and history of repeated falls. 3. Significant functional mobility and ADL deficits. 4. History of diabetes mellitus, for which she has been on metformin. 5. History of renal insufficiency. PLAN: The overall plan of care is based on preadmission screen, post-admission physician evaluation and information garnered from therapy. 1. Estimated length of stay is probably at least 5 to 10 days and likely longer if needed. 2. Medical prognosis is reasonably good. 3. Anticipated interventions includes the interdisciplinary acute inpatient rehabilitation program with PT/OT, speech, rehab nursing assisting regarding medication management, skin care prophylaxis, bowel and bladder issues and nursing education. The rest of the interdisciplinary rehab team will be involved as well. 4. Anticipated functional outcomes would be for the patient to become modified independent with transfers, mobility and ADLs and improvement with cognition so that she can return back to the home setting. She needs to improve to the point where she does not have the falls and has much improved independence. 5. Discharge destination would be back home with . 6. Expected therapy by discipline includes PT, OT and speech 1 hour per day each 5 days a week throughout the duration of the acute inpatient rehabilitation stay. <ELECTRONICALLY SIGNED> By: Darrion De La Garza MD 01/05/18 1314 [id number] Darrion De La Garza MD /nt
--- NOTE | ~2018-01-02 | HC ---
[facility] [place] [address] CONSULTATION Name: BRISEIDA MENDOZA Room #: 509-P ADM IN M.R.#: [id number] Admission: 01/02/18 Attend Phys: Darrion De La Garza MD Discharge: Date of : 56 Report #: [id number] THIS REPORT FOR: //name// CC: Darrion De La Garza ROBERT STRATTON DATE OF SERVICE: 01/06/2018 NEUROBEHAVIORAL STATUS EXAMINATION ATTENDING PHYSICIAN: Darrion De La Garza MD TITLE ONE READING TEACHER: Butch Alvarado, PhD CLINICAL PRESENTATION: The patient is a 57-year-old female, admitted to the [facility] for comprehensive inpatient rehabilitation program to improve functional mobility, activities of daily living and self-care and mental status secondary to deficits from recurrent multiple sclerosis exacerbations. She was admitted with bilateral lower extremity weakness and an inability to ambulate. She has had numerous falls. Functional mobility and activities of daily living deficits, cognitive disorder, renal insufficiency and diabetes mellitus are also contributing to her level of impaired function. A complete description of her medical condition and history can be found in her medical record. Neuropsychological consultation was requested to provide assistance in the assessment of cognitive and emotional status and to provide recommendations and services. Prior to this most recent admission, she was living with the assistance of her and daughter. The patient has three children. Four sisters are also involved. She has required assistance in basic and instrumental activities of daily living. She has a 12th grade education. 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 TECHNIQUES UTILIZED: Clinical interview, review of medical records, staff consultation and behavioral observation, mini mental status exam 2 standard version, and clock drawing. EXAMINATION FINDINGS: The patient was alert and cooperative with the assessment. She accurately described the reason for her hospitalization. There is no evidence of aphasia. She does not report auditory or visual hallucinations. There is no evidence of thought disorder. She describes her symptoms to include sleep disturbance and tiredness and fatigue. She does not report subjective anxiety or depression. She denies difficulty with memory, word finding or concentration. She identifies her primary problem is related to walking. [facility] [address] [place] [address] CONSULTATION Name: BRISEIDA MENDOZA Room #: 509-P [facility] IN ..#: [id number] Admission: 01/02/18 Attend Phys: Darrion De La Garza MD Discharge: Date of : 56 Report #: [id number] The patient's performance on the MMSE 2 brief version is extremely low with a raw score of 11/16. She was 3/3 for initial registration, 4/5 for orientation to time, 4/[address] and 0/3 for immediate recall of 3 items after a brief time delay and distraction. The patient's response time was very slow during the evaluation. Her performance on the MMSE 2 standard version was extremely low with a raw score of 20/30. She was 1/5 for serial 7's, 2/2 for naming, 1/1 for repetition. She was 3/3 for auditory comprehension. She could read and follow a single command and write a sentence. The patient was unable to copy a simple geometric design. The patient could not accurately set the hands of a clock at a designated time. Organization of the clock was satisfactory, however, conceptual ability to recognize hand placement was poor. The patient is presenting with decreased insight into the severity of her cognitive deficits. Impairment is noted with immediate recall, sustained concentration, visual spatial organization and executive functioning. DIAGNOSTIC IMPRESSION: Major neurocognitive disorder due to multiple sclerosis, without behavior disorder -- in the moderate range. RECOMMENDATIONS: The patient will require continued 24-hour care upon discharge. Assistance in the management of medication, finances and nutrition is necessary. Problem solving will be poor and she will need additional help from family in regard to complex problem solving. Her personality is pleasant and personable. She denies subjective anxiety or depression. Thank you very much for allowing me to provide the consultation on this patient. <ELECTRONICALLY SIGNED> By: Butch Alvarado, PhD 01/08/18 1804 [id number] Butch Alvarado, PhD /nt
[~2018-01-02 17:10] MED LIST changes: +FLONASE 0.05%50 MCG INH; +HOME MEDICATION PO; +LIPITOR10 MG PO; +MEDROLDOSEPACK PO; +METFORMIN HCL500 MG PO; +TECFIDERA PO
[2018-01-02 20:15] VITALS: BP 152/88
[2018-01-03 05:30] LABS: HEMATOCRIT 31.6 % (37.0-47.0); MCH 28.4 pg (26.0-34.0); MCHC 34.8 g/dL (28.0-37.0); MCV 81.5 fL (80.0-100.0); RBC 3.88 mil/uL (4.20-5.00); RDW 14.1 % (10.5-14.5); WBC 10.9 thou/uL (4.0-11.0)
[2018-01-03 05:41] LABS: CALCIUM 9.1 mg/dL (8.5-10.1); CREATININE 0.9 mg/dL (0.6-1.0)
[2018-01-03 08:00] VITALS: BP 140/72
[2018-01-03 22:36] VITALS: BP 143/75
[2018-01-04 08:05] VITALS: BP 134/66
[2018-01-04 19:55] VITALS: BP 123/78
[2018-01-05 08:20] VITALS: BP 129/78
[2018-01-05 19:56] VITALS: BP 127/68
[2018-01-06 03:24] LABS: ABSOLUTE NEUTROPHILS 4.3 thou/uL (1.4-8.2); BASOPHILS 0.2 % (0.0-2.0); HEMATOCRIT 31.7 % (37.0-47.0); HEMOGLOBIN 11.1 gm/dL (12.0-15.0); LYMPHOCYTES 27.1 % (24.0-44.0); MCH 28.4 pg (26.0-34.0); MCHC 34.8 g/dL (28.0-37.0); MCV 81.6 fL (80.0-100.0); MONOCYTES 8.6 % (1.0-8.0); PLATELET COUNT 248 thou/uL (150-400); POLYS 62.1 % (36.0-66.0); RBC 3.89 mil/uL (4.20-5.00)
[2018-01-06 03:31] LABS: CALCIUM 8.5 mg/dL (8.5-10.1); CREATININE 0.9 mg/dL (0.6-1.0); MAGNESIUM 1.8 mg/dL (1.8-2.4); POTASSIUM 3.7 mmol/L (3.5-5.1)
[2018-01-06 08:37] VITALS: BP 143/78
[2018-01-06 19:21] VITALS: BP 135/74
[2018-01-07 07:40] VITALS: BP 113/55
[2018-01-07 17:53] LABS: URINE BILIRUBIN NEGATIVE (Negative); URINE BLOOD NEGATIVE (Negative); URINE CLARITY CLEAR; URINE COLOR YELLOW; URINE GLUCOSE-RANDOM* NEGATIVE (Negative); URINE KETONES 1+ (Negative); URINE PROTEIN (DIPSTICK) NEGATIVE (Negative); URINE UROBILINOGEN 0.2 E.U./dl (0.2-1.0)
[2018-01-07 17:55] LABS: URINE LEUKOCYTES-REFLEX 2+ (Negative); URINE NITRITE-REFLEX POSITIVE (Negative)
[2018-01-07 18:01] LABS: BACTERIA-REFLEX >30 Many /HPF (None Seen); CASTS None Seen /LPF (None Seen); CRYSTALS None Seen /LPF (None Seen); SQUAMOUS 4-10 Moderate /LPF (0-3); URINE RBC 0-2 Rare /HPF (0-2)
[2018-01-07 19:14] VITALS: BP 116/73
[2018-01-08 09:20] VITALS: BP 126/64
[2018-01-08 19:21] VITALS: BP 125/54
[2018-01-09 07:30] VITALS: BP 130/61
[2018-01-09] MEDS ORDERED: VITAMIN D2000 UNIT PO (09:12)
[2018-01-09] MEDS ORDERED: HOME MEDICATION PO (09:12)
[2018-01-09] MEDS ORDERED: LEVAQUIN 500 M500 M2 PO (09:12)
[2018-01-09 14:09] VITALS: BP 130/61
== END 2018-01-09 15:10 | disposition home or self-care (01) | DRG 59 ==
LOC: ENTRNSPT 01-09 14:48 → EDTRNSPTSTS 01-09 14:53
PROVIDERS: Nurse Practitioner; Nurse Practitioner Family
DX: G35 Multiple sclerosis (principal); N39.0 Urinary tract infection, site not specified; E11.9 Type 2 diabetes mellitus without complications; E78.5 Hyperlipidemia, unspecified; R53.81 Other malaise; R26.9 Unspecified abnormalities of gait and mobility; R53.1 Weakness; E53.8 Deficiency of other specified B group vitamins; R29.6 Repeated falls; F01.50 Vascular dementia, unspecified severity, without behavioral disturbance, psychotic disturbance, mood disturbance, and anxiety; N28.9 Disorder of kidney and ureter, unspecified; R41.89 Other symptoms and signs involving cognitive functions and awareness; K59.00 Constipation, unspecified; Z88.0 Allergy status to penicillin; Z87.440 Personal history of urinary (tract) infections; Z79.84 Long term (current) use of oral hypoglycemic drugs; Z79.52 Long term (current) use of systemic steroids
CPT/HCPCS: 10112

== ENCOUNTER 2018-06-12 15:16 | Emergency (ER) | payer OTHER ==
[~2018-06-12] VITALS: Ht 167.6 cm; Wt 80.7 kg
[~2018-06-12 15:16] MED LIST changes: +LEVAQUIN 500 M500 M2 PO; +VITAMIN D2000 UNIT PO
[2018-06-12 15:58] LABS: URINE BILIRUBIN NEGATIVE (Negative); URINE BLOOD NEGATIVE (Negative); URINE CLARITY CLEAR; URINE GLUCOSE-RANDOM* NEGATIVE (Negative); URINE KETONES TRACE (Negative); URINE LEUKOCYTES-REFLEX NEGATIVE (Negative); URINE NITRITE-REFLEX NEGATIVE (Negative); URINE PROTEIN (DIPSTICK) NEGATIVE (Negative); URINE SPECIFIC GRAVITY >= 1.030 (1.005-1.035); URINE UROBILINOGEN 0.2 E.U./dl (0.2-1.0)
[2018-06-12 15:59] LABS: URINE COLOR YELLOW
[2018-06-12] MEDS ORDERED: NAPROXEN375 MG PO (16:48)
[2018-06-12] MEDS ORDERED: NORFLEX100 MG PO (16:48)
[2018-06-12] MEDS ORDERED: TRAMADOL 50 MG50 MG PO (16:48)
[2018-06-12] MEDS ORDERED: PYRIDIUM200 MG PO (17:03)
[2018-06-12 17:14] VITALS: BP 126/80
== END 2018-06-12 17:15 | disposition home or self-care (01) ==
LOC: ER 15:16
PROVIDERS: Physician Assistant
DX: R30.0 Dysuria (principal); G35 Multiple sclerosis; M25.552 Pain in left hip; Z88.0 Allergy status to penicillin

== ENCOUNTER 2019-03-19 10:42 | Emergency (ER) | payer OTHER ==
[~2019-03-19] VITALS: Ht 172.7 cm; Wt 81.7 kg
[~2019-03-19 10:42] MED LIST changes: +NAPROXEN375 MG PO; +NORFLEX100 MG PO; +PYRIDIUM200 MG PO
[2019-03-19 12:16] VITALS: BP 142/78
[2019-03-19] MEDS ORDERED: NORCO 5-325 TA1 EAC1 PO (12:19)
== END 2019-03-19 12:26 | disposition home or self-care (01) ==
LOC: ER 10:42
DX: M25.572 Pain in left ankle and joints of left foot (principal); M25.562 Pain in left knee; Z88.0 Allergy status to penicillin; W10.9XXA Fall (on) (from) unspecified stairs and steps, initial encounter; Y92.89 Other specified places as the place of occurrence of the external cause; Y93.89 Activity, other specified; Y99.8 Other external cause status

== ENCOUNTER 2019-03-23 10:28 | Emergency (ER) | payer OTHER ==
[~2019-03-23] VITALS: Ht 172.7 cm; Wt 81.7 kg
[~2019-03-23 10:28] MED LIST changes: +NORCO 5-325 TA1 EAC1 PO
[2019-03-23 10:39] VITALS: BP 123/57
[2019-03-23] MEDS ORDERED: MOBIC7.5 MG PO (11:32)
== END 2019-03-23 11:45 | disposition home or self-care (01) ==
LOC: ER 10:28
DX: M79.672 Pain in left foot (principal); G35 Multiple sclerosis; Z88.0 Allergy status to penicillin

== ENCOUNTER 2019-03-30 06:41 | Emergency (ER) | payer OTHER ==
[~2019-03-30] VITALS: Ht 167.6 cm; Wt 63.5 kg
[~2019-03-30 06:41] MED LIST changes: +MOBIC7.5 MG PO
[2019-03-30] MEDS ORDERED: NORCO 5-325 TA1 EAC1 PO (08:33)
[2019-03-30] MEDS ORDERED: NAPROXEN375 MG PO (08:33)
[2019-03-30 08:37] VITALS: BP 131/69
== END 2019-03-30 08:37 | disposition home or self-care (01) ==
LOC: ER 06:41
DX: S93.402A Sprain of unspecified ligament of left ankle, initial encounter (principal); S93.602A Unspecified sprain of left foot, initial encounter; G81.94 Hemiplegia, unspecified affecting left nondominant side; G35 Multiple sclerosis; Z88.0 Allergy status to penicillin; W10.8XXA Fall (on) (from) other stairs and steps, initial encounter; Y93.89 Activity, other specified; Y92.89 Other specified places as the place of occurrence of the external cause; Y99.8 Other external cause status

== ENCOUNTER 2019-10-13 17:33 | Emergency (ER) | payer OTHER ==
[~2019-10-13] VITALS: Ht 167.6 cm; Wt 63.5 kg
[2019-10-13 18:40] LABS: URINE BILIRUBIN NEGATIVE (Negative); URINE BLOOD NEGATIVE (Negative); URINE CLARITY SL CLOUDY; URINE COLOR YELLOW; URINE GLUCOSE-RANDOM* NEGATIVE (Negative); URINE KETONES NEGATIVE (Negative); URINE LEUKOCYTES-REFLEX 1+ (Negative); URINE NITRITE-REFLEX NEGATIVE (Negative); URINE PROTEIN (DIPSTICK) NEGATIVE (Negative); URINE SPECIFIC GRAVITY >= 1.030 (1.005-1.035); URINE UROBILINOGEN 0.2 E.U./dl (0.2-1.0)
[2019-10-13 18:53] LABS: BACTERIA-REFLEX >30 Many /HPF (None Seen); CASTS None Seen /LPF (None Seen); CRYSTALS None Seen /LPF (None Seen); SQUAMOUS 0-3 Few /LPF (0-3); URINE RBC None Seen /HPF (0-2)
[2019-10-13] MEDS ORDERED: MACROBID 100 M100 MG PO (19:01)
[2019-10-13] MEDS ORDERED: PHENAZOPYRIDIN200 M2 PO (19:05)
[2019-10-13 19:10] VITALS: BP 130/91
== END 2019-10-13 19:31 | disposition home or self-care (01) ==
LOC: ER 17:33
PROVIDERS: Physician Assistant
DX: N39.0 Urinary tract infection, site not specified (principal); Z79.899 Other long term (current) drug therapy; Z88.0 Allergy status to penicillin

== ENCOUNTER 2020-02-06 00:45 | Emergency (ER) | payer OTHER | END 2020-02-06 04:00 | disposition home or self-care (01) | LOC: ER 00:45 | DX: R53.1 Weakness (principal); R05 Cough; Z20.828 Contact with and (suspected) exposure to other viral communicable diseases; R10.13 Epigastric pain; G35 Multiple sclerosis; Z79.899 Other long term (current) drug therapy; Z88.0 Allergy status to penicillin ==

== ENCOUNTER 2020-02-08 17:54 | Emergency (ER) | payer OTHER ==
[~2020-02-08] VITALS: Ht 167.6 cm; Wt 68.0 kg
[~2020-02-08 17:54] MED LIST changes: +BACLOFEN5 MG PO; +MACROBID 100 M100 MG PO; +PHENAZOPYRIDIN200 M2 PO
[2020-02-08] MEDS ORDERED: BACTRIM DS TAB1 EACH PO (18:51)
[2020-02-08] MEDS ORDERED: PYRIDIUM200 MG PO (18:51)
[2020-02-08 19:37] LABS: URINE BILIRUBIN NEGATIVE (Negative); URINE BLOOD TRACE (Negative); URINE COLOR YELLOW; URINE GLUCOSE-RANDOM* NEGATIVE (Negative); URINE KETONES TRACE (Negative); URINE PROTEIN (DIPSTICK) TRACE (Negative); URINE SPECIFIC GRAVITY 1.025 (1.005-1.035)
[2020-02-08 19:40] LABS: URINE CLARITY CLOUDY; URINE LEUKOCYTES-REFLEX 1+ (Negative); URINE NITRITE-REFLEX POSITIVE (Negative)
[2020-02-08 19:41] LABS: BACTERIA-REFLEX >30 Many /HPF (None Seen); CRYSTALS None Seen /LPF (None Seen); SQUAMOUS 0-3 Few /LPF (0-3); URINE RBC 0-2 Rare /HPF (0-2); URINE WBC-REFLEX >25 Many /HPF (0-5)
[2020-02-08 19:54] VITALS: BP 125/62
== END 2020-02-08 19:55 | disposition home or self-care (01) ==
LOC: ER 17:54
PROVIDERS: Emergency Medicine
DX: N39.0 Urinary tract infection, site not specified (principal); R53.1 Weakness; Z88.0 Allergy status to penicillin

== ENCOUNTER 2020-05-30 06:28 | Emergency (ER) | payer OTHER ==
[~2020-05-30] VITALS: Ht 167.6 cm; Wt 68.0 kg
[2020-05-30] MEDS ORDERED: FLUTICASONE PRO30 G1 TOP (07:45)
[2020-05-30] MEDS ORDERED: LORATIDINE 10 M10 M1 PO (07:45)
[2020-05-30] MEDS ORDERED: OFLOXACIN5 M1 LT. EAR (07:48)
[2020-05-30 07:57] VITALS: BP 130/70
== END 2020-05-30 07:58 | disposition home or self-care (01) ==
LOC: ER 06:28
DX: H92.02 Otalgia, left ear (principal); J06.9 Acute upper respiratory infection, unspecified; Z79.899 Other long term (current) drug therapy; Z88.0 Allergy status to penicillin

== ENCOUNTER 2020-12-27 18:58 | Emergency (ER) | payer OTHER ==
[~2020-12-27] VITALS: Ht 167.6 cm; Wt 63.5 kg
[~2020-12-27 18:58] MED LIST changes: +FLUTICASONE PRO30 G1 TOP; +LORATIDINE 10 M10 M1 PO; +OFLOXACIN5 M1 LT. EAR
[2020-12-27 19:24] LABS: URINE BILIRUBIN NEGATIVE (Negative); URINE BLOOD TRACE (Negative); URINE CLARITY CLEAR; URINE COLOR YELLOW; URINE GLUCOSE-RANDOM* TRACE (Negative); URINE KETONES NEGATIVE (Negative); URINE PROTEIN (DIPSTICK) NEGATIVE (Negative); URINE SPECIFIC GRAVITY >= 1.030 (1.005-1.035)
[2020-12-27 19:32] LABS: URINE LEUKOCYTES-REFLEX 1+ (Negative); URINE NITRITE-REFLEX POSITIVE (Negative)
[2020-12-27 19:35] LABS: FINE GRANULAR CASTS 0-3 Few /LPF (None Seen); SQUAMOUS 4-10 Moderate /LPF (0-3); URINE RBC 1-2 Rare /HPF (NONE SEEN); URINE WBC-REFLEX >25 Many /HPF (0-5)
[2020-12-27 19:36] LABS: BACTERIA-REFLEX >30 Many /HPF (None Seen); CRYSTALS None Seen /LPF (None Seen)
[2020-12-27 20:59] LABS: ABSOLUTE NEUTROPHILS 3.4 thou/uL (1.4-8.2); BASOPHILS 0.6 % (0.0-2.0); HEMATOCRIT 37.6 % (37.0-47.0); HEMOGLOBIN 12.8 gm/dL (12.0-15.0); MCH 28.7 pg (26.0-34.0); MCHC 34.1 g/dL (28.0-37.0); MCV 84.2 fL (80.0-100.0); MONOCYTES 9.4 % (1.0-8.0); PLATELET COUNT 226 thou/uL (150-400); RBC 4.47 mil/uL (4.20-5.00); RDW 14.5 % (10.5-14.5); WBC 4.7 thou/uL (4.0-11.0)
[2020-12-27 21:27] LABS: CREATININE 1.2 mg/dL (0.6-1.0); MAGNESIUM 1.9 mg/dL (1.8-2.4); POTASSIUM 4.1 mmol/L (3.5-5.1)
[2020-12-27] MEDS ORDERED: PYRIDIUM100 M1 PO (21:34)
[2020-12-27] MEDS ORDERED: CEPHALEXIN500 MG PO (21:34)
[2020-12-27 21:45] VITALS: BP 144/63
--- NOTE | 2020-12-28 07:17 | EKG ---
[place] [address] [facility] [place] [address] ELECTROCARDIOGRAM REPORT Name: BRISEIDA MENDOZA [id number] Admission: 12/27/20 Attend Phys: Discharge: 12/27/20 Date of : 56 Report #: [id number] [facility] ED Test Date: 2020-12-27 Test Time: 19:38:19 Pat Name: BRISEIDA MENDOZA Department: Room: Gender: F Control Systems Specialist: [facility] : 1960 Requested By: Dilia Corona Order Number: [id number] MD: Romeo Parham Measurements Intervals Munger Rate: 104 P: 36 MN: 159 QRS: 21 QRSD: 95 T: 203 QT: 303 QTc: 399 Interpretive Statements Sinus tachycardia Multiple ventricular premature complexes Borderline repolarization abnormality Compared to ECG 02/06/2020 01:36:13 Ventricular premature complex(es) now present T-wave abnormality no longer present Electronically Signed On 12-28-2020 7:17:33 CDT by Romeo Parham [email or web address] <ELECTRONICALLY SIGNED> By: Romeo Parham MD, [facility] 12/28/2017 37 37 Romeo Parham MD, [facility] /EPI
== END 2020-12-27 21:46 | disposition home or self-care (01) ==
LOC: ER 18:58
PROVIDERS: Physician Assistant
DX: N39.0 Urinary tract infection, site not specified (principal); I49.3 Ventricular premature depolarization; Z88.0 Allergy status to penicillin

== ENCOUNTER 2021-04-04 21:52 | Emergency (ER) | payer OTHER ==
[~2021-04-04] VITALS: Ht 167.6 cm; Wt 68.0 kg
[~2021-04-04 21:52] MED LIST changes: +CEPHALEXIN500 MG PO; +PYRIDIUM100 M1 PO
[2021-04-05 00:26] LABS: URINE BILIRUBIN NEGATIVE (Negative); URINE BLOOD 2+ (Negative); URINE CLARITY SL CLOUDY; URINE COLOR YELLOW; URINE GLUCOSE-RANDOM* NEGATIVE (Negative); URINE KETONES TRACE (Negative); URINE PROTEIN (DIPSTICK) NEGATIVE (Negative); URINE SPECIFIC GRAVITY 1.025 (1.005-1.035); URINE UROBILINOGEN 0.2 E.U./dl (0.2-1.0)
[2021-04-05 00:36] LABS: URINE LEUKOCYTES-REFLEX 3+ (Negative); URINE NITRITE-REFLEX POSITIVE (Negative)
[2021-04-05 00:38] LABS: MUCUS 0-3 Light strn/LPF (None Seen); SQUAMOUS >10 Many /LPF (0-3)
[2021-04-05 00:39] LABS: BACTERIA-REFLEX >30 Many /HPF (None Seen); CASTS None Seen /LPF (None Seen); CRYSTALS None Seen /LPF (None Seen); WBC CLUMPS Few (None Seen)
[2021-04-05] MEDS ORDERED: BACTRIM DS TAB1 EACH PO (00:50)
[2021-04-05 00:54] VITALS: BP 142/75
== END 2021-04-05 00:58 | disposition home or self-care (01) ==
LOC: ER 21:52
PROVIDERS: Emergency Medicine
DX: N39.0 Urinary tract infection, site not specified (principal); Z79.899 Other long term (current) drug therapy; Z79.891 Long term (current) use of opiate analgesic; Z79.84 Long term (current) use of oral hypoglycemic drugs; Z79.51 Long term (current) use of inhaled steroids; Z79.1 Long term (current) use of non-steroidal anti-inflammatories (NSAID); Z88.0 Allergy status to penicillin